=== PATIENT | male | born 1940 | race Caucasian/White ===

== ENCOUNTER 2021-06-04 14:10 | Emergency (ER) | payer OTHER ==
[~2021-06-04] VITALS: Ht 167.6 cm; Wt 68.9 kg
[2021-06-04] MEDS ORDERED: ADULT LOW DOSE81 M1 (14:26)
[2021-06-04] MEDS ORDERED: PLAVIX75 MG (14:26)
[2021-06-04] MEDS ORDERED: COZAAR25 MG (14:26)
[2021-06-04] MEDS ORDERED: TOPROL XL25 M1 (14:27)
== END 2021-06-04 17:49 | disposition home or self-care (01) ==
LOC: ER 14:10
DX: S42.252A Displaced fracture of greater tuberosity of left humerus, initial encounter for closed fracture (principal); W18.39XA Other fall on same level, initial encounter; Y93.89 Activity, other specified; Y92.89 Other specified places as the place of occurrence of the external cause; Y99.8 Other external cause status

== ENCOUNTER 2022-11-15 11:25 | Inpatient (IN) | payer OTHER ==
[~2022-11-15] VITALS: Ht 167.6 cm; Wt 61.2 kg
[~2022-11-15 11:25] MED LIST: ADULT LOW DOSE81 M1; COZAAR25 MG; PLAVIX75 MG; TOPROL XL25 M1
--- NOTE | 2022-11-15 11:39 | NUR ---
PACIENTE ALERTA Y ORIENTADO ES TRAIDO EN AMBULANCIA VIA TRANSFER DE [facility], ACEPTADO POR DR TEJADA. REFIERE HIJA PACIENTE SUFRIO CAIDA EL RAJIV DE RYAN. REFIERE PARAMEDICO FRACTURA DE CADERA DERECHA.
--- NOTE | 2022-11-15 13:06 | NUR ---
SE ORIENTA A PACIENTE SOBRE TRATAMIENTO A SEGUIR, REFIERE ENTENDER. SE COLECTAN MUESTRAS DE LABORATORIO BAJO MEDIDAS ASEPTICAS
--- NOTE | 2022-11-15 15:45 | NUR ---
SE RECIBE PTE ALERTA Y ORIENTADO X3 CON BARANDAS ELEVADAS. CON UN #18 EN MANO DERECHA PENDIENTE A ESTUDIOS.
[2022-11-16] MEDS ORDERED: ST. JOSEPH ASPI81 M2 (16:29)
[2022-11-16] MEDS ORDERED: ATORVASTATIN CA10 MG (16:29)
[2022-11-16] MEDS ORDERED: FINASTERIDE5 MG (16:29)
[2022-11-16] MEDS ORDERED: TAMSULOSIN HCL0.4 MG (16:29)
== END 2022-11-24 17:10 | DRG 481 ==
LOC: ER 11:25 → SURG 19:25 → EDBD 19:25 → SURG 11-24 17:10
PROVIDERS: Orthopaedic Surgery; ADMIT Internal Medicine; ATTEND Internal Medicine
PROC: 30233N1 Transfusion of Nonautologous Red Blood Cells into Peripheral Vein, Percutaneous Approach (ICD-10-PCS; 2022-11-17)
PROC: B24BYZZ Ultrasonography of Heart with Aorta using Other Contrast (ICD-10-PCS; 2022-11-19)
PROC: 0QS636Z Reposition Right Upper Femur with Intramedullary Internal Fixation Device, Percutaneous Approach (ICD-10-PCS; principal; 2022-11-20 13:00)
DX: S72.141A Displaced intertrochanteric fracture of right femur, initial encounter for closed fracture (principal); N39.0 Urinary tract infection, site not specified; I11.9 Hypertensive heart disease without heart failure; I25.10 Atherosclerotic heart disease of native coronary artery without angina pectoris; D63.8 Anemia in other chronic diseases classified elsewhere; Z95.1 Presence of aortocoronary bypass graft; D69.6 Thrombocytopenia, unspecified

== ENCOUNTER 2022-12-23 10:12 | Outpatient (CLI) | payer OTHER ==
[~2022-12-23 10:12] MED LIST changes: +ATORVASTATIN CA10 MG; +FINASTERIDE5 MG; +ST. JOSEPH ASPI81 M2; +TAMSULOSIN HCL0.4 MG
== END 2022-12-23 10:18 | disposition home or self-care (01) ==
LOC: RAD 10:12
PROVIDERS: ATTEND Orthopaedic Surgery
DX: M25.551 Pain in right hip (principal)